=== PATIENT | female | born 1970 | race Caucasian/White ===

== ENCOUNTER 2021-03-27 02:37 | Day surgery (SDC) | payer MEDICARE, MEDICAID, SELFPAY ==
[2021-03-23 15:05] VITALS: BMI 32.8
[2021-03-27] VITALS (9 sets, daily range): BP systolic 96–135; BP diastolic 61–73; PULSE 70–82; RESP 14–16; TEMP 37.1; O2SAT 97–100
[2021-03-27] MEDS: LACTATED RINGERS 1,000 ML 30 ML IV CONT ×2 (10:44→12:57)
[2021-03-27] MEDS: KETOROLAC 15 MG/ML VIAL (*BKC) IV PUSH (10:46)
[2021-03-27] MEDS: CELECOXIB 200 MG CAPSULE PO (10:46)
[2021-03-27] MEDS: ACETAMINOPHEN 500 MG TABLET 1000 MG PO (10:46)
--- NOTE | 2021-03-27 11:03 | SUR.PREOP ---
PT STATES HAS RECENTLY USED A WALKER FOR S/P RT BUNION SURGERY AND HAS DIFFICULTY USING CRUTCHES AND PLANS TO USE WALKER AGAIN FOLLOWING LT KNEE SCOPE SURGERY TODAY
--- NOTE | 2021-03-27 11:40 | WPDHPUPDATE1 ---
History and Physical Update Update Date/Time: 03/27/21 11:40 History and Physical has been reviewed, including an updated exam of the patient. There are NO changes in the patient's condition. Risks, benefits, and alternatives have been discussed and questions answered. Patient agrees to proceed with procedure.
[2021-03-27] MEDS: ceFAZolin 2 GM/D5W 50 ML 2 GM/50 ML BAG IVPB (11:50)
--- NOTE | 2021-03-27 13:04 | W.PM.PROC2 ---
Procedure Note - Detailed Date of Procedure 03/27/21 Pre-op Diagnosis left knee patella femoral chondromalacia and lateral meniscus tear Post-op Diagnosis same Procedure Performed LEFT KNEE SCOPE Surgeon Uvaldo De Guzman MD Anesthesia general Description of Procedure PATIENT WAS TAKEN TO THE OR. LEFT LEG WAS PREPPED AND DRAPED STERILE. TROCARS WERE PLACED IN THE USUAL FASHION. CAMERA WAS INTRODUCED. THERE WAS SEVERE CHONDROMALACIA TO THE PATELLA FEMORAL JOINT. THERE WAS A LOT OF SYNOVITIS IN ALL COMPARTMENTS. THE MEDIAL COMPARTMENT SHOWED NO CHONDROMALACIA TO THE MEDIAL FEMORAL CONDYLE OR PLATEAU. THERE WAS NO MEDIAL MENISCUS TEAR. THE ACL WAS INTACT. THE LATERAL MENISCUS WAS TORN AT THE MID SUBSTANCE. THE TEAR WAS RESECTED. THE LATERAL COMPARTMENT HAD GRADE 2 CHONDROMALACIA AT THE LATERAL PLATEAU. CHONDROPLASTY WAS PREFORMED. A SYNOVECTOMY WAS PREFORMED WELL. THE PATELLO FEMORAL JOINT UNDERWENT CHONDROPLASTY OVER THE PATELLA AND TROCHLEA. THERE WAS GRADE 3 CHONDROMALACIA IN MOST OF THE TROCHLEA AND PART OF THE PATELLA. SYNOVECTOMY WAS PREFORMED IN THE SUPERIOR MEDIAL COMPARTMENT. THE WOUNDS WERE APPROXIMATED WITH 4.0 NYLON. STERILE DRESSING WAS APPLIED. PATIENT WAS EXTUBATED. Estimated Blood Loss 5 Complications No immediate complications Condition stable Disposition PACU
[2021-03-27] MEDS: fentaNYL CITRATE INJ (*CRX) 100 MCG/2 ML VIAL 25 MCG IV PUSH ×8 (13:12→13:58)
[2021-03-27] MEDS: oxyCODONE HCL (*CRX) 5 MG TAB IR PO (14:32)
--- NOTE | 2021-03-27 18:34 | SUR.PHASEII ---
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 DR. KEBEDE CALLED WHO SAID XRAY WAS NOT NECESSARY AND TO CANCEL IT.
== END 2021-03-27 15:10 | disposition home or self-care (01) ==
PROVIDERS: PCP Family Medicine; Visit Provider Orthopaedic Surgery
PROC: (CPT 29870; principal; 2021-03-27 12:00)
DX: M94.262 Chondromalacia, left knee (principal); M65.862 Other synovitis and tenosynovitis, left lower leg; M23.362 Other meniscus derangements, other lateral meniscus, left knee; Q78.0 Osteogenesis imperfecta; M79.7 Fibromyalgia; M19.90 Unspecified osteoarthritis, unspecified site; J44.9 Chronic obstructive pulmonary disease, unspecified; F41.8 Other specified anxiety disorders; K21.9 Gastro-esophageal reflux disease without esophagitis; E78.00 Pure hypercholesterolemia, unspecified; I10 Essential (primary) hypertension; E03.9 Hypothyroidism, unspecified; K58.9 Irritable bowel syndrome, unspecified; M81.0 Age-related osteoporosis without current pathological fracture; F17.210 Nicotine dependence, cigarettes, uncomplicated; F12.90 Cannabis use, unspecified, uncomplicated
CPT/HCPCS: 29881; 29876; A9270; J0690; J1100; J1885; J2250; J2704; J3010; J7120

== ENCOUNTER 2021-04-02 15:53 | Outpatient (CLI) | payer MEDICARE, MEDICAID, SELFPAY ==
--- NOTE | ~2021-04-02 | US_ITS ---
EXAMINATION: US venous doppler [facility] DATE: 04/02/2021 16:32 INDICATION: Left lower limb pain. TECHNIQUE: Grayscale ultrasound images without and with compression and Doppler ultrasound images of the left lower extremity veins were obtained. COMPARISON: None. FINDINGS: The visualized portions of left common femoral vein, profunda (deep) femoral vein, femoral vein, popl iteal vein, peroneal veins, posterior tibial veins, and greater saphenous vein outflow are patent. IMPRESSION: 1. No deep venous thrombosis. Reviewed, dictated and finalized at location A.
== END 2021-04-02 15:54 | disposition home or self-care (01) ==
PROVIDERS: PCP Family Medicine; Visit Provider Orthopaedic Surgery
DX: I82.402 Acute embolism and thrombosis of unspecified deep veins of left lower extremity (principal)
CPT/HCPCS: 93971